=== PATIENT | male | born 1955 | race Hispanic/Latino ===

== ENCOUNTER → 2019-04-14 | Outpatient (CLI) | payer SELFPAY ==
[~2019-04-14] MED LIST: ALPRAZOLAM0.25 MG PO; AMLODIPINE BESYL5 MG PO; LOVASTATIN40 MG PO; NITROSTAT0.4 MG SL; OMEPRAZOLE20 M1 PEG; PLAVIX75 MG PO
--- NOTE | 2019-04-14 14:14 | Diagnostic Imaging Report ---
Exam: Sinus radiograph History: Sinusitis Comparison: None. Findings: No fracture or malalignment. Sinuses are aerated. No fluid levels. Nasal septum midline. Impression: Normal sinus radiographs Signed by: Dr. Salvador Contreras M.D. on 04/14/2019 2:11 PM
== END ==
LOC: RAD 12:12
PROVIDERS: ATTEND Internal Medicine
DX: R51 Headache (principal)
CPT/HCPCS: 70220

== ENCOUNTER 2022-08-02 12:18 | Emergency (ER) | payer MEDICARE, MEDICAID ==
[~2022-08-02] VITALS: Ht 175.3 cm; Wt 94.3 kg
[2022-08-02 13:09] LABS: BASOPHILS % 0.4 % (0.0-1.0); EOSINOPHILS # (AUTO) 0.1 (0.0-0.4); EOSINOPHILS % 1.1 % (0.0-6.0); HEMATOCRIT 42.3 % (38.2-49.6); HEMOGLOBIN 14.9 g/dL (14.0-18.0); LYMPHOCYTES # (AUTO) 1.2 (1.0-3.2); LYMPHOCYTES % 15.8 % (18.0-39.1); MEAN CORPUSCULAR HEMOGLOBIN 33.4 pg (28-32); MEAN CORPUSCULAR HGB CONC 35.2 g/dL (31-35); MEAN CORPUSCULAR VOLUME 94.8 fL (81-99); MONOCYTES # (AUTO) 0.5 (0.2-0.8); MONOCYTES % 6.7 % (4.4-11.3); NEUTROPHILS # (AUTO) 5.6 (2.1-6.9); NEUTROPHILS % 75.5 % (38.7-80.0); PLATELET COUNT 194 x10e3/uL (140-360); RED BLOOD COUNT 4.46 x10e6/uL (4.3-5.7); RED CELL DISTRIBUTION WIDTH 13.1 % (11.7-14.4)
[2022-08-02 13:17] LABS: CLARITY,URINE CLEAR (CLEAR); COLOR,URINE YELLOW (YELLOW); KETONES,URINE NEGATIVE (NEGATIVE); LEUKOCYTE ESTERASE ,URINE NEGATIVE (NEGATIVE); NITRITE,URINE POSITIVE (NEGATIVE); PROTEIN,URINE DIPSTICK NEGATIVE (NEGATIVE); URINE UROBILINOGEN 1 mg/dL (0.2 - 1)
[2022-08-02 13:27] LABS: ALBUMIN/GLOBULIN RATIO 1.3 (0.8-2.0); ANION GAP 15.7 mmol/L (8-16); CALCIUM 8.8 mg/dL (8.4-10.2); CREATININE, SERUM 0.95 mg/dL (0.72-1.25); POTASSIUM 3.7 mmol/L (3.5-5.1)
[2022-08-02 13:41] LABS: EPITHELIAL CELLS,URINE RARE /LPF; WBC,URINE (MAN) 0-5 /HPF (0-5)
[2022-08-02 13:44] LABS: BACTERIA,URINE FEW /HPF
== END 2022-08-02 14:30 | disposition home or self-care (01) ==
LOC: ER 12:20
DX: N41.9 Inflammatory disease of prostate, unspecified (principal); R35.0 Frequency of micturition; N39.0 Urinary tract infection, site not specified; Z87.442 Personal history of urinary calculi; N28.1 Cyst of kidney, acquired
CPT/HCPCS: 36415; 74176; 80053; 81001; 85025; 87086; 99283